=== PATIENT | female | born 1940 | race Caucasian/White ===

== ENCOUNTER 2021-04-27 09:47 | Outpatient (CLI) | payer MEDICARE, BC | END 2021-04-27 09:48 | disposition home or self-care (01) | LOC: CSHMAMMO 09:47 | PROVIDERS: ATTEND Family Medicine | DX: Z12.31 Encounter for screening mammogram for malignant neoplasm of breast (principal); Z85.528 Personal history of other malignant neoplasm of kidney | CPT/HCPCS: 77063; 77067 ==

== ENCOUNTER 2021-12-30 10:56 | Outpatient (CLI) | payer MEDICARE, BC | END 2021-12-30 10:57 | disposition home or self-care (01) | LOC: CSHRAD 10:56 | PROVIDERS: ATTEND Family Medicine Sports Medicine | DX: S83.242A Other tear of medial meniscus, current injury, left knee, initial encounter (principal); S80.02XA Contusion of left knee, initial encounter; Z95.0 Presence of cardiac pacemaker; S83.282A Other tear of lateral meniscus, current injury, left knee, initial encounter; M23.332 Other meniscus derangements, other medial meniscus, left knee | CPT/HCPCS: 71045 ==

== ENCOUNTER 2022-08-22 11:55 | Outpatient (CLI) | payer MEDICARE, BC | END 2022-08-22 11:56 | disposition home or self-care (01) | LOC: CSHMAMMO 11:55 | PROVIDERS: ATTEND Family Medicine | DX: Z12.31 Encounter for screening mammogram for malignant neoplasm of breast (principal); Z85.528 Personal history of other malignant neoplasm of kidney | CPT/HCPCS: 77063; 77067 ==

== ENCOUNTER 2023-12-13 15:20 | Outpatient (CLI) | payer MEDICARE, BC | END 2023-12-13 15:21 | disposition home or self-care (01) | LOC: CSHMAMMO 15:20 | PROVIDERS: ATTEND Family Medicine | DX: Z12.31 Encounter for screening mammogram for malignant neoplasm of breast (principal); Z85.528 Personal history of other malignant neoplasm of kidney | CPT/HCPCS: 77063; 77067 ==